=== PATIENT | male | born 1990 | race Caucasian/White ===

== ENCOUNTER → 2023-01-20 11:17 | Outpatient (CLI) | payer BC, SELFPAY ==
--- NOTE | ~2023-01-20 | US_ITS ---
EXAMINATION: US thyroid DATE: 01/20/2023 11:37 INDICATION: Hyperthyroidism TECHNIQUE: Multiple ultrasound images of the thyroid were obtained. COMPARISON: None. FINDINGS: The right thyroid lobe measures 5.6 x 2.0 x 1.7 cm. The left thyroid lobe measures 5.6 x 1.4 x 1.6 c m. There is mild increased echogenicity and coarsened echotexture throughout the thyroid with normal vascular flow on color Doppler. Nodule 4 mm solid hypoechoic nodule with smooth margins and without i nternal echogenic foci at the thyroid isthmus (TI-RADS 4, moderately suspicious , FNA if >=1.5 cm, an nual followup is >=1 cm). No other thyroid nodules identified. IMPRESSION: 1. 4 mm TI RADS 4 nodule at the thyroid isthmus which is well below size criteria for either biopsy o r follow-up. Reviewed, dictated and finalized at location A. IMPRESSION: 1. 4 mm TI RADS 4 nodule at the thyroid isthmus which is well below size criter ia for either biopsy or follow-up.
== END ==
PROVIDERS: PCP Nurse Practitioner; Visit Provider Nurse Practitioner
DX: E05.90 Thyrotoxicosis, unspecified without thyrotoxic crisis or storm (principal); E04.1 Nontoxic single thyroid nodule
CPT/HCPCS: 76536

== ENCOUNTER 2023-04-11 21:44 | Emergency (ER) | payer BC, SELFPAY ==
[2023-04-11 21:51] VITALS: BP 153/86; PULSE 104; RESP 18; TEMP 36.3; O2SAT 100
--- NOTE | 2023-04-12 00:43 | ED.GENADULT ---
HPI - General Adult General Chief complaint: Wound/Laceration Stated complaint: lac to left hand Time Seen by Provider: 04/11/23 23:27 History of Present Illness HPI narrative: 32-year-old male presented to the emergency department for evaluation of a laceration to his left thumb. Patient states he was cutting in his cupcake and injured himself with the pie slicer. Patient states his tetanus is up-to-date. Related Data Allergies Allergy/AdvReac Type Severity Reaction Status Date / Time No Known Allergies Allergy Verified 04/11/23 21:53 Review of Systems Review of Systems: All systems reviewed & are unremarkable except as noted in HPI and below PMFSH Past Medical History Medical History (Updated 04/12/23 @ 00:47 by Willie Elaine MD) Depression Hypertension Family History Family History Mother Diabetes mellitus Hypertension Family history of elevated blood lipids Father Hypertension Family history of elevated blood lipids Grandparent Cerebrovascular accident Social History Social History Smoking status: Never smoker Second hand tobacco smoke exposure: No Alcohol intake: current Exam Narrative: APPEARANCE: Well appearing, no pain, no distress, well-nourished. HEAD: normocephalic, atraumatic. EYES: PERRLA/EOMI, conjunctivae clear. NOSE: Normal no drainage RESPIRATORY: Airway patent, respirations nonlabored. Clear to auscultation bilaterally, no rales, rhonchi, wheezing. CARDIOVASCULAR: Regular rate and rhythm without murmurs rubs or gallops. ABDOMINAL: Soft, nontender, nondistended, normal bowel sounds MUSCULOSKELETAL: Moves all extremities. Strength/ROM intact, No edema, No calf tenderness. No tendon or ligament injury to thumb NEURO: Alert. Cranial nerves II through XII intact. Grossly intact SKIN: Warm, dry. Normal Color. 3 cm laceration to left thumb, neurovascular intact Course Course Emergency Course: 32-year-old male presented ED for evaluation of a laceration to left thumb. Laceration was repaired as described in the procedure note. Patient's tetanus was up-to-date. Patient was updated on the wound care and on the treatment plan. All questions and concerns were addressed. Vital Signs Vital signs: Vital Signs Temperature 97.3 F L 06/23/23 21:51 Pulse Rate 104 H 04/11/23 21:51 Respiratory Rate 18 04/11/23 21:51 Blood Pressure 153/86 H 04/11/23 21:51 Pulse Oximetry 100 04/11/23 21:51 Oxygen Delivery Room Air 04/11/23 21:51 Temperature 97.3 F L 04/11/23 21:51 Pulse Rate 82 04/12/23 01:11 Respiratory Rate 14 04/12/23 01:11 Blood Pressure 130/68 04/12/23 01:11 Pulse Oximetry 100 04/12/23 01:11 Oxygen Delivery Room Air 04/11/23 21:51 Procedures Laceration Laceration 1: Site: hand Side (If applicable): left Size (cm): 3 Description: linear Depth: simple, single layer Local Anesthetic: lidocaine 1% Amount of anesthesia used (mL): 3 Pre-repair: wound explored and irrigated ====== Skin Level ====== Skin layer closed with: nylon Size (cm): 4-0 Number of sutures: 4 ====== Subcutaneous Layer ====== ====== Muscle Layer ====== ====== Tendon Layer ====== Medical Decision Making Vital Signs Vital Signs: Vital Signs Temperature 97.3 F L 04/11/23 21:51 Pulse Rate 104 H 04/11/23 21:51 Respiratory Rate 18 04/11/23 21:51 Blood Pressure 153/86 H 04/11/23 21:51 Pulse Oximetry 100 04/11/23 21:51 Oxygen Delivery Room Air 04/11/23 21:51 Temperature 97.3 F L 04/11/23 21:51 Pulse Rate 82 04/12/23 01:11 Respiratory Rate 14 04/12/23 01:11 Blood Pressure 130/68 04/12/23 01:11 Pulse Oximetry 100 04/12/23 01:11 Oxygen Delivery Room Air 04/11/23 21:51 Discharge Plan Discharge Clinical
[2023-04-12 01:11] VITALS: BP 130/68; PULSE 82; RESP 14; O2SAT 100
== END 2023-04-12 01:12 | disposition home or self-care (01) ==
PROVIDERS: Emergency Provider Emergency Medicine; PCP Nurse Practitioner
DX: S61.012A Laceration without foreign body of left thumb without damage to nail, initial encounter (principal); W26.0XXA Contact with knife, initial encounter
CPT/HCPCS: 12002; 99282

== ENCOUNTER 2023-06-04 13:56 | Outpatient (CLI) | payer BC, SELFPAY ==
--- NOTE | ~2023-06-04 | NM_ITS ---
EXAMINATION: NM thyroid scan w uptake DATE: 06/05/2023 14:29 INDICATION: Abnormal results of thyroid function studies. COMPARISON: Ultrasound 01/20/2023 TECHNIQUE: 0.396 mCi I-123 was administered orally. Scintigraphic images of the thyroid gland were o btained at 24 hours. Thyroid uptake was calculated by the technologist. FINDINGS: The thyroid uptake is 14% (normal 10-30%), with the right lobe measuring 8% uptake and the left 6%. T here is no focal area of decreased or increased activity to suggest hypofunctioning or hyperfunctioni ng nodule. IMPRESSION: 1. Normal thyroid scintigraphy and 24-hour iodine uptake. Reviewed, dictated and finalized at location A.
== END 2023-06-04 13:57 | disposition home or self-care (01) ==
PROVIDERS: PCP Nurse Practitioner; Visit Provider Internal Medicine Endocrinology, Diabetes & Metabolism
DX: R94.6 Abnormal results of thyroid function studies (principal)
CPT/HCPCS: 78014; A9516

== ENCOUNTER 2025-08-09 15:17 | Outpatient (CLI) | payer BC, SELFPAY ==
--- NOTE | ~2025-08-09 | US_ITS ---
US thyroid INDICATION: Subclinical hyperthyroidism TECHNIQUE: Real-time sonographic images of the thyroid gland were obtained. COMPARISON: No prior studies for comparison. FINDINGS: The right thyroid lobe measures 4.3 x 1.8 x 1.7 cm. The left thyroid lobe measures 4.9 x 1.8 x 1.5 cm at the junction of the isthmus and left thyroid lobe there is a solid hypoechoic wider than tall, smoothly marginated mass with echogenic foci, TR 5, measuring 12 x 11 x 8 mm.. No suspicious masses in the right lobe. In the superior aspect of the isthmus there is a solid hypoechoic wider than tall smoothly marginated mass without echogenic foci measuring 10 x 9 x 6 mm, TR 4. Recommend 12 month interval surveillance of this mass. IMPRESSION: 1. Suspicious mass of the left thyroid lobe at the junction of the isthmus medially measuring 12 mm, TR 5. Ultrasound-guided fine-needle aspiration biopsy recommended. Reviewed, dictated and finalized at location O. IMPRESSION: 1. Suspicious mass of the left thyroid lobe at the junction of the isthmus med ially measuring 12 mm, TR 5. Ultrasound-guided fine-needle aspiration biopsy recommended.
== END 2025-08-09 15:18 | disposition home or self-care (01) ==
LOC: MICIMG 15:18
PROVIDERS: PCP Nurse Practitioner; Visit Provider Nurse Practitioner
DX: E07.89 Other specified disorders of thyroid (principal); E05.90 Thyrotoxicosis, unspecified without thyrotoxic crisis or storm; Z86.39 Personal history of other endocrine, nutritional and metabolic disease
CPT/HCPCS: 76536